=== PATIENT | male | born 1950 | race Caucasian/White ===

== ENCOUNTER → 2018-10-21 | Day surgery (SDC) | payer MEDICARE ==
[2018-10-19 11:49] LABS: BASOPHILS # (AUTO) 0.1 (0.0-0.1); BASOPHILS % 0.7 % (0.0-1.0); EOSINOPHILS # (AUTO) 0.3 (0.0-0.4); EOSINOPHILS % 4.2 % (0.0-6.0); HEMATOCRIT 40.9 % (38.2-49.6); LYMPHOCYTES # (AUTO) 1.1 (1.0-3.2); MEAN CORPUSCULAR HEMOGLOBIN 33.7 pg (28-32); MEAN CORPUSCULAR HGB CONC 34.2 g/dL (31-35); MEAN CORPUSCULAR VOLUME 98.6 fL (81-99); MONOCYTES # (AUTO) 0.8 (0.2-0.8); MONOCYTES % 11.7 % (4.4-11.3); NEUTROPHILS # (AUTO) 4.5 (2.1-6.9); PLATELET COUNT 239 x10e3/uL (140-360); RED BLOOD COUNT 4.15 x10e6/uL (4.3-5.7); RED CELL DISTRIBUTION WIDTH 12.5 % (11.7-14.4)
[2018-10-19 12:25] LABS: INR 0.87; PROTHROMBIN TIME 12.3 seconds (11.9-14.5)
[2018-10-19 12:29] LABS: ALANINE AMINOTRANSFERASE 15 IU/L (0-55); ALKALINE PHOSPHATASE 45 IU/L (40-150); BLOOD UREA NITROGEN 16 mg/dL (7-26); BUN/CREATININE RATIO 20 (6-25); CALCIUM 10.4 mg/dL (8.4-10.2); CARBON DIOXIDE 26 mmol/L (22-29); CHLORIDE 100 mmol/L (98-107); CREATININE, SERUM 0.81 mg/dL (0.72-1.25); EST GLOMERULAR FILTRATION RATE > 60 ML/MIN (60-); GLUCOSE 113 mg/dL (74-118); SODIUM 136 mmol/L (136-145)
[~2018-10-21] VITALS: Ht 182.9 cm; Wt 93.0 kg
[~2018-10-21] MED LIST: FENTANYL CITRATE/PF 100MCG/2 ML INJ ONE; HEPARIN SOD (PORCINE) 1000 UNIT/ML 30ML ONE; HEPARIN SOD/SOD CHLORIDE 2,000 ML ONE; IOPAMIDOL 370 MG/ML 200 ML INFUS..BTL INJ ONE; LIDOCAINE HCL 2% LOCAL 20 ML VIAL ONE; MIDAZOLAM HCL 2 MG/2 ML VIAL ONE; NITROGLYCERIN/D5W 200 MCG/ML 250 ML ONE; SODIUM CHLORIDE 0.9% 1000ML 1,000 ML ONE; VERAPAMIL HCL 2.5 MG/ML 2 ML VIAL ONE
--- NOTE | 2018-10-21 18:27 | Operative Report ---
DATE OF PROCEDURE: SURGEON: Juan Del Cid DO PROCEDURES PERFORMED: 1. Conscious sedation 26 minute. 2. Selective coronary angiography and left heart catheterization. PREPROCEDURE DIAGNOSIS: Abnormal stress test showing apical perfusion defect. POSTOPERATIVE DIAGNOSIS: Nonobstructive coronary artery disease. ESTIMATED BLOOD LOSS: Less than 20 mL. SPECIMENS REMOVED: None. PROCEDURE IN DETAIL: After informed consent was obtained, the patient was brought to the cardiac catheterization laboratory in a fasting and nonsedated state. Bilateral groins and right wrist were prepped and draped in usual sterile fashion. A 2% lidocaine infiltrated over the right wrist for local anesthesia. Using a micropuncture needle, the right radial artery was accessed via the modified Seldinger technique and a 6-Armenian glide sheath was placed. Next, diagnostic coronary angiography was performed using a JR4 catheter. The left ventricle was entered with a modified angled pigtail catheter. The patient tolerated the procedure well with no immediate complication. Hemostasis was achieved via TR band. PROCEDURE FINDINGS: 1. Left main coronary artery is patent. 2. Left anterior descending coronary artery is patent throughout its proximal mid course. The distal LAD tapered down to a small vessel. 3. Left circumflex coronary provides two obtuse marginal vessels with no significant coronary artery disease. 4. Right coronary artery is a dominant vessel, provides a posterior descending coronary artery. 5. Left ventricular end-diastolic pressure was normal with no aortic valve gradient. IMPRESSION: Nonobstructive coronary artery disease. RECOMMENDATIONS: Medical management. Juan Del Cid DO BM/MODL /[id number]
--- NOTE | 2018-10-21 19:52 | Operative Report ---
DATE OF PROCEDURE: SURGEON: Juan Del Cid DO PROCEDURES PERFORMED: 1. Conscious sedation, 60 minutes. 2. Selective coronary angiography x2. 3. Left heart catheterization. PREPROCEDURE DIAGNOSIS: Chest pain with abnormal stress test. POSTPROCEDURE DIAGNOSIS: Nonobstructive coronary artery disease. ESTIMATED BLOOD LOSS: Less than 20 mL. SPECIMENS REMOVED: None. PROCEDURE IN DETAIL: After informed consent was obtained, the patient was brought to the cardiac catheterization laboratory in a fasting and nonsedated state. Bilateral groins and right wrist were prepped and draped in usual sterile fashion. A 2% lidocaine was infiltrated over the right wrist for local anesthesia. Using micropuncture needle, the right radial artery was accessed via modified Seldinger technique and a 6-[place] glide sheath was placed. Next, diagnostic coronary angiography was performed using a Jagjit, JR4, and pigtail catheter. The pigtail catheter was used to enter the left ventricle and hemodynamic parameters were obtained. All catheters removed over the wire. Hemostasis achieved via TR band. The patient tolerated the procedure well with no immediate complications, transferred to his room in stable condition. PROCEDURE FINDINGS: 1. Left main coronary artery is patent without significant disease. 2. Left anterior descending coronary artery is patent throughout its proximal mid course. The apical portion of the LAD is small with mild luminal irregularities. 3. Left circumflex coronary artery is a medium to large caliber vessel and provides two obtuse marginal vessels with luminal irregularities. 4. Right coronary artery is a large dominant vessel provides posterior descending coronary artery. There are mild luminal irregularities present. 5. Left ventricular end-diastolic pressure is 12 mmHg with no aortic valve gradient present upon pullback. IMPRESSION AND PLAN: The patient was found to have nonobstructive coronary artery disease, which will be managed medically at this point in time. Juan Del Cid DO BM/MODL /[id number]
== END | disposition home or self-care (01) ==
LOC: CATH LAB 11:33
PROVIDERS: ATTEND Internal Medicine Cardiovascular Disease
DX: I25.10 Atherosclerotic heart disease of native coronary artery without angina pectoris (principal); R94.39 Abnormal result of other cardiovascular function study; I49.9 Cardiac arrhythmia, unspecified; I34.0 Nonrheumatic mitral (valve) insufficiency; I35.1 Nonrheumatic aortic (valve) insufficiency; I10 Essential (primary) hypertension; Z01.812 Encounter for preprocedural laboratory examination; Z82.49 Family history of ischemic heart disease and other diseases of the circulatory system
CPT/HCPCS: 36415; 80053; 85025; 85610; 93458; C1769; J1644; J2001; J2250; J7030; Q9967

== ENCOUNTER 2020-12-14 21:03 | Emergency (ER) | payer MEDICARE ==
[~2020-12-14] VITALS: Ht 182.9 cm; Wt 93.0 kg
[2020-12-14 21:34] LABS: BASOPHILS # (AUTO) 0.1 (0.0-0.1); EOSINOPHILS # (AUTO) 0.3 (0.0-0.4); EOSINOPHILS % 4.9 % (0.0-6.0); HEMATOCRIT 42.6 % (38.2-49.6); HEMOGLOBIN 14.1 g/dL (14.0-18.0); LYMPHOCYTES # (AUTO) 2.2 (1.0-3.2); LYMPHOCYTES % 31.8 % (18.0-39.1); MEAN CORPUSCULAR HEMOGLOBIN 31.3 pg (28-32); MEAN CORPUSCULAR HGB CONC 33.1 g/dL (31-35); MEAN CORPUSCULAR VOLUME 94.5 fL (81-99); MONOCYTES # (AUTO) 1.1 (0.2-0.8); NEUTROPHILS # (AUTO) 3.2 (2.1-6.9); NEUTROPHILS % 45.6 % (38.7-80.0); PLATELET COUNT 224 x10e3/uL (140-360); RED BLOOD COUNT 4.51 x10e6/uL (4.3-5.7); RED CELL DISTRIBUTION WIDTH 13.6 % (11.7-14.4)
[2020-12-14 21:42] LABS: CLARITY,URINE SL CLOUDY (CLEAR); COLOR,URINE YELLOW (YELLOW); KETONES,URINE NEGATIVE (NEGATIVE); LEUKOCYTE ESTERASE ,URINE NEGATIVE (NEGATIVE); NITRITE,URINE NEGATIVE (NEGATIVE); PROTEIN,URINE DIPSTICK 1+ (NEGATIVE); URINE UROBILINOGEN 0.2 mg/dL (0.2 - 1)
[2020-12-14 21:45] LABS: AMPHETAMINES SCREEN,URINE POSITIVE (NEGATIVE); BENZODIAZEPINES SCREEN,URINE NEGATIVE (NEGATIVE); PHENCYCLIDINE SCREEN,URINE NEGATIVE (NEGATIVE)
[2020-12-14 21:52] LABS: ALANINE AMINOTRANSFERASE 12 IU/L (0-55); ALBUMIN 3.8 g/dL (3.5-5.0); ALBUMIN/GLOBULIN RATIO 0.7 (0.8-2.0); ALKALINE PHOSPHATASE 70 IU/L (40-150); ANION GAP 16.9 mmol/L (8-16); BLOOD UREA NITROGEN 15 mg/dL (7-26); BUN/CREATININE RATIO 17 (6-25); CALCIUM 9.4 mg/dL (8.4-10.2); CARBON DIOXIDE 24 mmol/L (22-29); CHLORIDE 97 mmol/L (98-107); CREATINE KINASE 65 IU/L (30-200); CREATININE, SERUM 0.86 mg/dL (0.72-1.25); EST GLOMERULAR FILTRATION RATE > 60 ML/MIN (60-); GLUCOSE 89 mg/dL (74-118); POTASSIUM 3.9 mmol/L (3.5-5.1); SODIUM 134 mmol/L (136-145)
[2020-12-14 21:56] LABS: BACTERIA,URINE RARE /HPF; EPITHELIAL CELLS,URINE FEW /LPF
[2020-12-14 22:48] VITALS: BP 135/78
== END 2020-12-14 23:00 | disposition home or self-care (01) ==
LOC: ER 21:25
DX: R56.9 Unspecified convulsions (principal); F14.10 Cocaine abuse, uncomplicated; F15.10 Other stimulant abuse, uncomplicated; I10 Essential (primary) hypertension; I50.9 Heart failure, unspecified; I48.91 Unspecified atrial fibrillation; R94.31 Abnormal electrocardiogram [ECG] [EKG]
CPT/HCPCS: 36415; 70450; 71045; 80053; 80307; 80320; 81001; 82550; 82553; 84484; 85025; 93005; 99284